=== PATIENT | male | born 1965 | race Caucasian/White ===

== ENCOUNTER 2023-02-19 09:32 | Outpatient (CLI) | payer OTHER, SELFPAY | END 2023-02-19 09:33 | disposition home or self-care (01) | PROVIDERS: PCP Family Medicine; Visit Provider Family Medicine | DX: R10.9 Unspecified abdominal pain (principal); R53.83 Other fatigue; E78.00 Pure hypercholesterolemia, unspecified; R73.03 Prediabetes; F41.8 Other specified anxiety disorders; M54.9 Dorsalgia, unspecified; Z12.5 Encounter for screening for malignant neoplasm of prostate | CPT/HCPCS: 80053; 80061; 84153; 84270; 84402; 84403; 84443 ==

== ENCOUNTER 2023-03-14 09:15 | Day surgery (SDC) | payer OTHER, SELFPAY ==
[2023-03-14] VITALS (11 sets, daily range): BP systolic 110–128; BP diastolic 74–82; PULSE 54–68; RESP 11–146; TEMP 36.4–37; O2SAT 93–100; BMI 39.4
[2023-03-14] MEDS: LACTATED RINGERS 1000 ML 1,000 ML 100 ML IV (10:10)
--- NOTE | 2023-03-14 11:45 | W.ANESCHARGE ---
Anesthesia Charges Start Date/Time Anesthesia Start Date: 03/14/23 Anesthesia Start Time: 11:25 Stop Date/Time Anesthesia Stop Date: 03/14/23 Anesthesia Stop Time: 12:39
[2023-03-14] MEDS: CEFAZOLIN 2 GM INJ IVP (11:59)
[2023-03-14] MEDS: BUPIVACAINE 0.25% 30 ML INJECTION (12:18)
--- NOTE | 2023-03-14 12:25 | PM.GSPRC ---
Operative Note Pre-op diagnosis: Incarcerated umbilical hernia Post-op diagnosis: Same Type of Procedure: Open 2 cm umbilical hernia repair with mesh Indications: The patient is a 58-year-old male who presents to clinic with a history of an umbilical hernia. This has become increasingly symptomatic for him and he desires it to be repaired. Procedure Description: After discussing the risks and benefits of the procedure, the patient signed informed consent.? The operative site was marked and the patient was brought to the operating room and placed on the operating table in supine position.? Care was taken to pad the patient's pressure points.?? The patient was then intubated by anesthesia.?? The operative site was then prepped and draped in the usual sterile fashion.? A time-out was then performed. Local anesthetic was injected into the fascia, skin and subcutaneous tissues. A curvilinear incision was made at the umbilicus. Dissection was carried down into the subcutaneous tissue using cautery. The hernia sac was encountered and care was taken to not enter it. Dissection was taken down to the fascia, and the umbilical stalk was carefully dissected off of the hernia sac. Once the hernia sac was dissected out circumferentially, it was able to be reduced. The fascial edges were then cleared circumferentially. The hernia was 2 cm in size and so the decision was made to use a piece of mesh. A preperitoneal pocket was created using a combination of blunt dissection and cautery. Hemostasis appeared adequate. Once the posterior fascia was clear, a piece of medium Ventralex ST hernia mesh was placed in the preperitoneal space with care to ensure that it laid flat. This was secured into place using 2 0 PDS interrupted sutures. The tails were then trimmed and the fascial opening was closed with 0 Nurolon sutures in a vest over pants fashion. The umbilicus was reapproximated to the fascia. The skin was then closed with running absorbable suture. A sterile dressing was then applied. ? The patient was then woken and transported to the recovery area in stable condition. ? The patient tolerated the procedure well. Findings: 2 cm fat containing umbilical hernia. Anesthesia: GETA Surgeon: Belle Gloria MD Estimated blood loss (mL): 5 Condition: stable Disposition: PACU
--- NOTE | 2023-03-14 12:38 | W.ANESCHARGE ---
Anesthesia Charges Start Date/Time Anesthesia Start Date: 03/14/23 Anesthesia Start Time: 11:25 Stop Date/Time Anesthesia Stop Date: 03/14/23 Anesthesia Stop Time: 12:39
[2023-03-14] MEDS: HYDROmorphone 2 MG TABLET PO (14:11)
== END 2023-03-14 14:21 | disposition home or self-care (01) ==
PROVIDERS: PCP Family Medicine; Visit Provider Surgery
PROC: (CPT 49592; principal; 2023-03-14 10:45)
DX: K42.0 Umbilical hernia with obstruction, without gangrene (principal)
CPT/HCPCS: 49592; 830; A9270; C1781; J0330; J0665; J0690; J1100; J1885; J2405; J2704; J3010; J3490; J7120

== ENCOUNTER 2023-11-12 14:03 | Outpatient (REF) | payer OTHER, SELFPAY ==
--- OUTSIDE RECORDS SUMMARY | 2023-11-12 14:06 | XMS_ITS | Encounter Summary ---
Author Name Unknown Organization [facility] Address [address] [place] [address] Care Team Providers Care Table Games Manager Name Role Phone Servando Mcbride MD Primary Care Provider + [phone] Whit Russell Primary Care Provi karen Whit Russell Unavailable +[phone] Encounter Details Date Type Department Care Team (Late st Contact Info) Description 09/27/2013 MyC Medical Advice [facility] [address] [place] [address] [place] [phone] DalephillipsTim Social History Tobacco Use Types Packs/Day Years Used Date Smoking Tobacco: Never Smokeless Tobacco: Never Alcohol Use Standard Drinks/Week Comments Yes 0.8 (1 standard drink = 0.6 oz p ure alcohol) social Sex and Gender Information Value Date Recorded Sex Assigned at Not on file Gender Identity Not on file Sexual Orientation Not on file documented as of this encounter Plan of Treatment Not on file documented as of this encounter Visit Diagnoses Not on filedocumented in this encounter Care Teams Table Games Manager Relationship Specialty Start Date End Date Servando Mcbride MD XXX RETIRED XXX [address] [phone] PCP - General 12/05/07 02/24/14 Whit Russell PA XXX RETIRED XXX [address] [facility] 100 [place] [address] PCP - General Family Practice 02/25/14 Whit Russell PA [address] [facility] 100 [place] [address] Assigned PCP 09/10/16 07/02/20 documented as of this encounter
--- OUTSIDE RECORDS SUMMARY | 2023-11-12 14:06 | XMS_ITS | Encounter Summary ---
Author Name Unknown Organization [facility] Address [facility] [place] [address] Care Team Providers Care Traction Power Engineer Name Role Phone Whit Russell Primary Care Provi karen Whit Russell Unavailable [phone] Reason for Visit * Reason Onset Date Comments Stress 11/02/2016 Encounter Details Date Type Department Care Team (Late st Contact Info) Description 11/02/2016 MyC Medical Advice [facility] [address] [place] [address] [address] [place] [address] Whit Russell PA [address] [address] Stress Social History Tobacco Use Types Packs/Day Years Used Date Smoking Tobacco: Never Smokeless Tobacco: Never Alcohol Use Standard Drinks/Week Comments Yes 7 (1 standard drink = 0.6 oz pur e alcohol) social Sex and Gender Information Value Date Recorded Sex Assigned at Not on file Gender Identity Not on file Sexual Orientation Not on file documented as of this encounter Miscellaneous Notes * Telephone Encounter - Azul Nails MA - 11/02/2016 1:31 PM CDTFrom: Edmundo Mojica To: Whit Russell PA Sent: 11/02/2016 12:46 PM CDT Subject: Stress Dr. Russell, I hope all is well. We spoke about 5 weeks ago when I was in for my fall on my face about my stresslevel. You had indicated that you thought maybe that we could reduce or eliminate my stress medication. I told you during the conversation that I was being asked to retire from work after 30 years of service. You suggested that I stay on the medication for the time being. I am requesting a visit to discuss this. As my timeline for forced fdc approaches I have been experiencing a tremendous amount of additional stress. I am not sure I can handle much more stress. I would like to discuss what options are available. In addition I wanted to discuss with you weather or not you thought taking a medical leave of absence was an approach that might help with my stress. Again, I am unsure how to proceed. I have never experienced anything in my life like this. Sorryfor the rant. Please advise on next steps. Servando documented in this encounter Plan of Treatment Not on file documented as of this encounter Visit Diagnoses Not on filedocumented in this encounter Additional Health Concerns Assessment Noted Time PHQ-9 Depression Total Score: 3 02/23/20 16 7:16 AM CDT documented as of this encounter Care Teams Traction Power Engineer Relationship Specialty Start Date End Date Whit Russell PA PCP - General Family Practice 02/25/14 Whit Russell PA [address] [place] [address] [place] [address] Assigned PCP 09/10/16 07/02/20 documented as of this encounter
--- OUTSIDE RECORDS SUMMARY | 2023-11-12 14:06 | XMS_ITS | Encounter Summary ---
Author Name Unknown Organization [facility] Address [address] [place] [address] Care Team Providers Care Terminal Makeup Operator Name Role Phone Whit Russell Primary Care Provi karen Whit Russell Unavailable + [phone] Encounter Details Date Type Department Care Team (Late st Contact Info) Description 09/01/2014 MyC Medical Advice [facility] [address] [place] [phone] Tim Funez Social History Tobacco Use Types Packs/Day Years [...] on filedocumented in this encounter Care Teams Terminal Makeup Operator Relationship Specialty Start Date End Date Whit Russell PA PCP - General Family Practice 02/25/14 Whit Russell PA [address] [address] Assigned PCP 09/10/16 07/02/20 documented as of this encounter
--- OUTSIDE RECORDS SUMMARY | 2023-11-12 14:06 | XMS_ITS | Encounter Summary ---
Author Name Unknown Organization [facility] Address [address] [place] [address] Care Team Providers Care Production Miner Name Role Phone Servando Mcbride MD Primary Care Provider + [phone] Whit Russell Primary Care Provi karen Whit Russell Unavailable +[phone] Encounter Details Date Type Department Care Team (Late st Contact Info) Description 11/14/2012 MyC Medical Advice [facility] [address] [place] [address] [place] [address] DalegarrisonTim Social History Tobacco Use Types Packs/Day Years [...] on filedocumented in this encounter Care Teams Production Miner Relationship Specialty Start Date End Date Servando Mcbride MD XXX RETIRED XXX [address] [phone] PCP - General 12/05/07 02/24/14 Whit Russell PA XXX RETIRED XXX [address] [facility] 100 [place] [address] PCP - General Family Practice 02/25/14 Whit Russell PA [address] [facility] 100 [place] [address] Assigned PCP 09/10/16 07/02/20 documented as of this encounter
--- OUTSIDE RECORDS SUMMARY | 2023-11-12 14:06 | XMS_ITS | Encounter Summary ---
Author Name Unknown Organization [facility] Address [address] [place] [address] Care Team Providers Care Bull Fiddle Player Name Role Phone Whit Russell Primary Care Provi karen Whit Russell Unavailable [phone] Encounter Details Date Type Department Care Team (Late st Contact Info) Description 06/28/2017 MyC Medical Advice [facility] [address] [place] [address] Whit Russell PA [address] [facility] 100 [place] [address] Social History Tobacco Use Types Packs/Day Years Used Date Smoking Tobacco: Never Smokeless Tobacco: Former Comments:In College Alcohol Use Standard Drinks/Week Comments Yes 7 (1 standard drink = 0.6 oz pur e alcohol) social Sex and Gender Information Value Date Recorded Sex Assigned at Not on file Gender Identity Not on file Sexual Orientation Not on file documented as of this encounter Miscellaneous Notes * Telephone Encounter - Yudelka Archuleta CMA - 06/29/2017 8:41 AM CSTFrom: Edmundo Mojica To: Whit Russell PA Sent: 06/28/2017 7:24 PM SUPERINTENDENT CIRCUS Subject: Updates about my health Whit, My time with the EMT was interesting. He did not feel that it was hearing lose due to an obstruction or fluid. He believes that it is nerve damage. Had to do a hearing test. Right side normal. Left side was 30 to 45 decibels below the average. Prescribe Prednazone ( not sure about the spelling ). He hopes that the hearing will come back with a decrease of swelling in the ear. Follow up in 12 days. If no improvement will do an MRI and address from there. The pressure on the ear should decrease with the medication. The nerve should settle down with the sessesation of pressure. Will keep you up to date. Also my colonoscopy is scheduled for Aug 08, 2017. Thanks again for all of you help, today and previously. Servando RINTENDENT CIRCUS documented in this encounter Plan of Treatment Not on file documented as of this encounter Visit Diagnoses Not on filedocumented in this encounter Additional Health Concerns Assessment Noted Time PHQ-9 Depression Total Score: 9 06/28/20 17 1:21 PM SUPERINTENDENT CIRCUS documented as of this encounter Care Teams Bull Fiddle Player Relationship Specialty Start Date End Date Whit Russell PA PCP - General Family Practice 02/25/14 Whit Russell PA [address] [place] [address] [place] [address] Assigned PCP 09/10/16 07/02/20 documented as of this encounter
--- OUTSIDE RECORDS SUMMARY | 2023-11-12 14:06 | XMS_ITS | Encounter Summary ---
Author Name Unknown Organization [facility] Address [address] [facility] [place] [address] Care Team Providers Care Shrimp Packer Name Role Phone Whit Russell Primary Care Provi karen Whit Russell Unavailable [phone] Encounter Details Date Type Department Care Team (Late st Contact Info) Description 12/09/2016 MyC Medical Advice [facility] [address] [place] [address] Whit Russell PA [address] [facility] 100 [place], [place] [address] Social History Tobacco Use Types Packs/Day Years [...] encounter Miscellaneous Notes * Telephone Encounter - Leidy Cobb - 12/10/2016 9:47 AM CDT I called [facility], talked to Nancy. Patient has appt today, 12/10/16 @ 10:45am with [facility]. I faxed the referral & office notes to [phone] The referral was faxed on 12/07/16 ( I was not in the office that day ). No fax # on the cover letter. FYI * Telephone Encounter - Regine Alexander CMA - 12/10/2016 8:13 AM CDTFrom: Edmundo Mjoica To: Whit Russell PA Sent: 12/09/2016 7:58 PM CDT Subject: Confusion and direction needed Good evening. I contacted my insurance as requested and then made an appointment with Dr. Seaman.This was on Saturday morning. Late Saturday afternoon I received a call from a different endocrinology clinic stating that they had my paperwork and a referral from your office. I'm confused. Do I go to see Dr. Seaman as I have an appointment and you all will send him my referral and paperwork or am I going to endocriology clinch you all sent my paperwork to. Please advise. I am scheduled to meet with Dr. Seaman at 10:15 Saturday, December 10, 2016. documented in this encounter Plan of Treatment Not on file documented as of this encounter Visit Diagnoses Not on filedocumented in this encounter Additional Health Concerns Assessment Noted Time PHQ-9 Depression Total Score: 19 017 7:10 AM CDT documented as of this encounter Care Teams Shrimp Packer Relationship Specialty Start Date End Date Whit Russell PA PCP - General Family Practice 02/25/14 Whit Russell PA [address] [place] [address] [place] [address] Assigned PCP 09/10/16 07/02/20 documented as of this encounter
--- OUTSIDE RECORDS SUMMARY | 2023-11-12 14:06 | XMS_ITS | Encounter Summary ---
Author Name Unknown Organization [facility] Address [address] [place] [address] Care Team Providers Care Monorail Hooker Name Role Phone Servando Mcbride MD Primary Care Provider + [phone] Whit Russell Primary Care Provi karen Whit Russell Unavailable [phone] Encounter Details Date Type Department Care Team (Late st Contact Info) Description 12/18/2007 MyC Medical Advice [facility] [address] [place] [address] [place] [phone] [facility] Social History Tobacco Use Types Packs/Day Years Used Date Smoking Tobacco: Never Alcohol Use Standard Drinks/Week Comments Yes 0.8 (1 standard drink = 0.6 oz p ure alcohol) Sex and Gender Information Value Date Recorded Sex Assigned at Not on file Gender Identity Not on file Sexual Orientation Not on file documented as of this encounter Plan of Treatment Not on file documented as of this encounter Visit Diagnoses Not on filedocumented in this encounter Care Teams Monorail Hooker Relationship Specialty Start Date End Date Servando Mcbride MD XXX RETIRED XXX [address] [phone] PCP - General 12/05/07 02/24/14 Whit Russell PA XXX RETIRED XXX [address] [facility] 100 [place] [address] PCP - General Family Practice 02/25/14 Whit Russell PA [address] [facility] 100 [place], [place] [address] Assigned PCP 09/10/16 07/02/20 documented as of this encounter
--- OUTSIDE RECORDS SUMMARY | 2023-11-12 14:06 | XMS_ITS | Encounter Summary ---
Author Name Unknown Organization [facility] Address [facility] [place] [address] [place] [address] Care Team Providers Care Edge Sawyer Name Role Phone Rubin De Leon DO Primary Care Provider [phone] Reason for Visit * Reason Comments Pre-op Report (SCAN) [facility] Operative Report (SCAN) [facility] Encounter Details Date Type Department Care Team ([facility] st Contact Info) Description 07/24/2006 [facility] BUSINESS OFFICE [address] [place] [phone] Scanned, Documents Pre-op Report (SCAN) ([facility]); Operative Report (SCAN) ([facility]) Social History Tobacco Use Types Packs/Day Years Used Date Smoking Tobacco: Never Alcohol Use Standard Drinks/Week Comments Yes 0 (1 standard drink = 0.6 oz pur e alcohol) 2 beers a week Sex and Gender Information Value Date Recorded Sex Assigned at Not on file Gender Identity Not on file Sexual Orientation Not on file documented as of this encounter Progress Notes * Noah, Rut - 08/07/2006 3:10 PM RESTAURANT BUSSER AURANT BUSSER * Noah, Documents - 08/06/2006 10:58 AM RESTAURANT BUSSER AURANT BUSSER documented in this encounter Plan of Treatment Not on file documented as of this encounter Visit Diagnoses Not on filedocumented in this encounter Care Teams Edge Sawyer Relationship Specialty Start Date End Date Rubin De Leon DO [address] [place] [address] PCP - General 11/15/05 12/05/14 documented as of this encounter
--- OUTSIDE RECORDS SUMMARY | 2023-11-12 14:06 | XMS_ITS | Clinical Summary ---
Author Name Unknown Organization [facility] Address [facility] [place], [place] [address] [place] [address] Care Team Providers Care Relay Repairer Name Role Phone Unavailable Primary Care Provider Unavailabl e Allergies Active Allergy Reactions Criticality Noted Date Comments Morphine And Related Hives 04/03/2004 Medications Medication Sig Dispensed Refills Start Date End Date Status PRILOSEC OTC 20 MG OR TBEC 1 TABLET DAILY 14 0 11/19/2005 Active TRAMADOL HCL 50 MG OR TABS 1 TAB Q 6 HRS PRN PRN 30 0 07/27/2006 Active Active Problems Problem Noted Date Diagnosed Date Esophageal reflux 06/27/2005 Immunizations Name Administration Dates Next Due Tdap (Adacel) 12/12/2005 Family History Medical History Relation Comments COPD Father Cancer Maternal Grandfather esophageal cancer Cancer Maternal Grandmother pancreatic cancer Heart Mother CHF copd Mother Alcohol/Drug Paternal Grandmother liver disea se Relation Status Comments Father Alive Maternal Grandfather Maternal Grandmother Mother Paternal Grandfather Paternal Grandmother Social History Tobacco Use Types Packs/Day Years Used Date Smoking Tobacco: Never Alcohol Use Standard Drinks/Week Comments Yes 0 (1 standard drink = 0.6 oz pur e alcohol) 2 beers a week Sex and Gender Information Value Date Recorded Sex Assigned at Not on file Gender Identity Not on file Sexual Orientation Not on file Last Filed Vital Signs Vital Sign Reading Time Taken Comments Blood Pressure 120/72 07/19/2006 2:50 PM ADVERTISING OPERATIONS COORDINATOR Pulse 70 07/19/2006 2:50 PM ADVERTISING OPERATIONS COORDINATOR Temperature 36.8 ??C (98.2 ??F) 07/19/2006 2:50 PM CS T Respiratory Rate 18 07/19/2006 2:50 PM ADVERTISING OPERATIONS COORDINATOR Oxygen Saturation - - Inhaled Oxygen Concentration - - Weight 94.3 kg (208 lb) 07/19/2006 2:50 PM ADVERTISING OPERATIONS COORDINATOR Height 167.6 cm (5' 6) 07/19/2006 2:50 PM ADVERTISING OPERATIONS COORDINATOR Body Mass Index 33.57 07/19/2006 2:50 PM ADVERTISING OPERATIONS COORDINATOR Plan of Treatment Health Maintenance Due Date Last Done Comments Colorectal Cancer Screening Colonoscopy (10 Years) 1967 Annual Physical 1970 Hepatitis C 1985 DTaP, Tdap and Td Vaccines ( 2 - Td or Tdap) 12/13/2015 12/12/2005 Zoster Vaccines (1 of 2) 2017 COVID-19 Vaccine (1 - 2022-2 4 season) 2023 Meningococcal Vaccine Aged Out No thai jennifer eligible based on patient's age to complete this topic Pneumococcal Vaccine: Pediat rics (0 to 5 Years) and At-Risk Patients (6 to 64 Years) Aged Out No longer eligi ble based on patient's age to complete this topic RSV Immunizations Under 20 Months Aged Out No longer eligible based on patient's age to complete this topic
--- OUTSIDE RECORDS SUMMARY | 2023-11-12 14:06 | XMS_ITS | Encounter Summary ---
Author Name Unknown Organization [facility] Address [address] [place] [address] Care Team Providers Care Identification And Records Commander Name Role Phone Servando Mcbride MD Primary Care Provider + [phone] Whit Russell Primary Care Provi karen Whit Russell Unavailable [phone] Encounter Details Date Type Department Care Team (Late st Contact Info) Description 05/11/2011 MyC Medical Advice [facility] [address] [place] [address] [place] [address] [facility] Social History Tobacco Use Types Packs/Day Years [...] on filedocumented in this encounter Care Teams Identification And Records Commander Relationship Specialty Start Date End Date Servando Mcbride MD XXX RETIRED XXX [address] [phone] PCP - General 12/05/07 02/24/14 Whit Russell PA XXX RETIRED XXX [address] [facility] 100 [place] [address] PCP - General Family Practice 02/25/14 Whit Russell PA [address] [facility] [address] [facility] 100 [place] [address] Assigned PCP 09/10/16 07/02/20 documented as of this encounter
--- OUTSIDE RECORDS SUMMARY | 2023-11-12 14:06 | XMS_ITS | Encounter Summary ---
Author Name Unknown Organization [place] Address [address] [place] [address] Care Team Providers Care Labor Relations Manager Name Role Phone Servando Mcbride MD Primary Care Provider + [phone] Whit Russell Primary Care Provi karen Whit Russell Unavailable +[phone] Encounter Details Date Type Department Care Team (Late st Contact Info) Description 05/07/2011 MyC Medical Advice [facility] [address] [place] [address] [place] [address] [facility] Social History Tobacco Use Types Packs/Day Years [...] on filedocumented in this encounter Care Teams Labor Relations Manager Relationship Specialty Start Date End Date Servando Mcbride MD XXX RETIRED XXX [address] [phone] PCP - General 12/05/07 02/24/14 Whit Russell PA XXX RETIRED XXX [address] [facility] 100 [place] [address] PCP - General Family Practice 02/25/14 Whit Russell PA [address] [facility] [address] [place] [address] Assigned PCP 09/10/16 07/02/20 documented as of this encounter
--- OUTSIDE RECORDS SUMMARY | 2023-11-12 14:06 | XMS_ITS | Clinical Summary ---
Author Name Unknown Organization [place] Address [address] [place] [address] Care Team Providers Care Hardware Developer Name Role Phone Whit Russell Primary Care Provi karen Allergies No known active allergies Medications Medication Sig Dispensed Refills Start Date End Date Status Multiple Vitamin (ONE-A-DAY MENS) TABS Take 1 tablet by mouth daily. Active sertraline (ZOLOFT) 50 MG tabletIndications:A djustment disorder with mixed anxiety and depressed mood Cut in 1/2 for one week then one tab daily 90 tablet 11/06/2016 Active Additional Information Patient not taking.Reported on 03/16/2018 TraZODone & Diet Manage Prod (TRAZAMINE) 50 MG MISC Active traZODone (DESYREL) 50 MG tabletIndications:P rimary insomnia Take 1 tablet (50 mg) by mouth nightly as needed for sleep 90 tablet 06/28/2017 Active sertraline (ZOLOFT) 100 MG tabletIndications:A djustment disorder with mixed anxiety and depressed mood Take 1 tablet (100 mg) by mouth daily 90 tablet 06/28/2017 Active Active Problems Problem Noted Date Diagnosed Date Diverticulosis of large inte griffin without hemorrhage - throughout entire colon 11/15/2017 Thyroid nodule - Dr. Seaman managed 02/17/2017 ACP (advance care planning) 12/05/2015 Overview: Advance Care Planning 12/05/2015: ACP Review of Chart / Resources Provided: Reviewed chart for advance care plan. Edmundo Mojica has no plan or code status on file. Discussed available resources and provided with information. Confirmed code status reflects current choices pending further ACP discussions. Confirmed/documented legally designated decision makers. Added by Regine Alexander Mixed hyperlipidemia 12/05/2015 Adjustment disorder with mixed anxiety and depre ssed mood 12/05/2015 Health Retirement 05/16/2012 Overview: State Tier Level: Tier 1 Status: n/a Lang Path Therapist: See Letters for [facility] Care Plan Abnormal glucose 10/01/2008 Overview: Problem list name updated by automated process. Provider to review MUSCLE FASCICULATIONS 12/05/2007 Resolved Problems Problem Noted Date Diagnosed Date Resolved Date Living will, counseling/discussion 05/16/2012 06/06/2015 Overview: Patient states has Advance Directive and will bring in a copy to clinic. 05/16/2012 Hyperlipidemia 10/01/2008 12/05/2015 Overview: Problem list name updated by automated process. Provider to review Immunizations Name Administration Dates Next Due HEPA 08/29/2009,12/05/2007 HepB 08/29/2009,12/05/2007 Influenza (H1N1) 08/29/2009 Influenza (IIV3) PF 05/16/2012,09/01/2010 Nasal Influenza Vaccine 2-49 (FluMist) 5 Pneumococcal 23 valent 04/05/2015 TDAP Vaccine (Adacel) 03/16/2018,12/05/2007 Family History Medical History Relation Comments Depression Father Suicide Father Depression Mother Suicide Mother Asthma No family hx of C.A.D. No family hx of Cancer - colorectal No family hx of Diabetes No family hx of Hypertension No family hx of Prostate Cancer No family hx of Relation Status Comments Brother Alive Father (Age 56) Lung cnacer Mother (Age 52) COPD Sister Alive Son 1 Alive Son 2 Alive Son 3 Alive Social History Tobacco Use Types Packs/Day Years Used Date Smoking Tobacco: Never Smokeless Tobacco: Former Comments:In College Alcohol Use Standard Drinks/Week Comments Yes 7 (1 standard drink = 0.6 oz pur e alcohol) social Adolescent Education Answer Date Record ed Getting School Help Needed Not on file 05/14 Sex and Gender Information Value Date Recorded Sex Assigned at Not on file Gender Identity Not on file Sexual Orientation Not on file Last Filed Vital Signs Vital Sign Reading Time Taken Comments Blood Pressure 120/72 03/16/2018 3:17 PM CDT Pulse 100 03/16/2018 3:17 PM CDT Temperature 36.9 ??C (98.5 ??F) 03/16/2018 3 :17 PM CDT Respiratory Rate 20 11/06/2016 1:47 PM CDT Oxygen Saturation 98% 03/16/2018 3:1 7 PM CDT Inhaled Oxygen Concentration - - Weight 112.8 kg (248 lb 9.6 oz) 017 12:27 PM SPRAY DRY OPERATOR with shoes Height 170.2 cm (5' 7) 11/06/2016 1:47 PM CDT Body Mass Index 38.94 11/06/2016 1:47 PM CDT Plan of Treatment Not on file Procedures Procedure Name Priority Date/Time Associated Diagnosis Comments COLONOSCOPY - HIM SCAN Routine 11/12/2017 LIPID PROFILE Routine 12/05/2015 11:33 AM CDT Mixed hyperlipidemia from Last 3 Months or Most Recently Relevant to Health Maintenance Results * Colonoscopy - HIM Scan (11/12/2017) Provider Outside PROCEDURES * (ABNORMAL) Lipid Profile ([facility]) (12/05/2015 11:33 AM CDT) Cholesterol 202(H) 125 - 200 mg/dL [facility] HDL Cholesterol 39(L) > OR = 40 mg/dL [facility] Triglycerides 92 <150 mg/dL [facility] LDL Cholesterol Calculated 145(H) <130 mg/dL (calc) [facility] Comment: Desirable range <100 mg/dL for patients with CHD or diabetes and <70 mg/dL for diabetic patients with known heart disease. Cholesterol/HDL Ratio 5.2(H) < OR = 5.0 (calc) [facility] Non HDL Cholesterol 163(H) mg/dL (calc) [facility] Comment: Target for non-HDL cholesterol is 30 mg/dL higher than LDL cholesterol target. Blood specimen (specimen) 12/05/2015 11:33 AM CDT 12/06/2015 3:36 AM CDT Narrative Resulting Agency Comment Performing Organization Information: ? CB ? [facility] ? [address] [place] [address] ? Carl Rodriguez M.D. Jason Black MD LAB - BLOOD O RDERABLES [employer] [facility] [address] [place] [address] from Last 3 Months or Most Recently Relevant to Health Maintenance Care Teams Hardware Developer Relationship Specialty Start Date End Date Whit Russell PA PCP - General Family Practice 02/25/14
--- OUTSIDE RECORDS SUMMARY | 2023-11-12 14:06 | XMS_ITS | Encounter Summary ---
Author Name Unknown Organization [place] Address [address] [place] [address] Care Team Providers Care Fruit And Vegetable Packer Name Role Phone Whit Russell Primary Care Provi karen Whit Russell Unavailable [phone] Reason for Visit * Reason Onset Date Comments MyChart Communication 06/27/2017 Encounter Details Date Type Department Care Team (Latest Contact Info) Description 06/27/2017 MyC Medical Advice [facility] [address] [place] [address] [place] [phone] Whit Russell PA [address] [address] MyChart Communication Social History Tobacco Use Types Packs/Day Years [...] encounter Miscellaneous Notes * Telephone Encounter - Kristy Patel CMA - 06/27/2017 11:40 AM CSTFrom: Edmundo Mojica To: Whit Russell PA Sent: 06/27/2017 11:36 AM RADIO PRODUCER Subject: Do I need an appointment? Whit Good morning, I hope you and your family had a blessed Thanksgiving. I have a question for you.! Three weeks ago I developed a chest cold and what I am guessing is a sinus infection. A week later neither had abaitted. I had to fly to [place] for work. I could not equalize my ears because of the sinus pressure. 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 I was able to clear the right side but not the left. On my return trip I was able to equalize he right but he left again would not. I have had pressure on he left side of my face, head and ear ever since. [facility] was [facility] for antibiotics. The chest cold is all but gone but the pressure a nd pain on he left side is still there. I can only hear a constant ringing accompanied with muffledsounds ( like wearing hearing protection when I shoot ). I hear and occasional gurgling sound. The ear won???t clear. I have to fly to [place] Saturday and want to know your thoughts on what to do next. The pressure, headache and hearing mitigation have been for roughly 2 weeks. Please advise Thank youServando O PRODUCER documented in this encounter Plan of Treatment Not on file documented as of this encounter Visit Diagnoses Not on filedocumented in this encounter Additional Health Concerns Assessment Noted Time PHQ-9 Depression Total Score: 19 11/07/ 017 7:10 AM CDT documented as of this encounter Care Teams Fruit And Vegetable Packer Relationship Specialty Start Date End Date Whit Russell PA PCP - General Family Practice 02/25/14 Whit Russell PA [address] [facility] [address] [place] [address] Assigned PCP 09/10/16 07/02/20 documented as of this encounter
--- OUTSIDE RECORDS SUMMARY | 2023-11-12 14:06 | XMS_ITS | Referral Summary ---
Author Name Unknown Organization [place] Address [address] [place] [address] Care Team Providers Care Bottom Saw Operator Name Role Phone Whit Russell Primary [...] anxiety and depre ssed mood 12/05/2015 Health Long Term 05/16/2012 Overview: State Tier Level: Tier 1 Status: n/a Pantomimist: See Letters for [facility] Care Plan Abnormal glucose 10/01/2008 Overview: Problem [...] 23 valent 04/05/2015 TDAP Vaccine (Adacel) 03/16/2018,12/05/2007 Social History Tobacco Use Types Packs/Day Years [...] (248 lb 9.6 oz) 017 12:27 PM CASTINGS DRAFTER with shoes Height 170.2 cm (5' 7) [...] Comment Performing Organization Information: ? CB ? [facility] ? [address] [facility] [place] [address] ? Carl Rodriguez M.D. Jason Black MD LAB - BLOOD O RDERABLES [employer] [facility] [address] [place] [address] from Last 3 Months or Most Recently Relevant to Health Maintenance Care Teams Bottom Saw Operator Relationship Specialty Start Date End Date Whit Russell PA PCP - General Family Practice 02/25/14
--- OUTSIDE RECORDS SUMMARY | 2023-11-12 14:06 | XMS_ITS | Encounter Summary ---
Author Name Unknown Organization [place] Address [address] [place] [address] Care Team Providers Care Slot Tag Inserter Name Role Phone Whit Russell Primary Care Provi karen Whit Russell Unavailable [phone] Reason for Visit * Reason Onset Date Comments MyChart Communication 09/16/2017 Encounter Details Date Type Department Care Team (Latest Contact Info) Description 09/16/2017 MyC Medical Advice [facility] [address] [place] [address] [place] [phone] Whit Russell PA [address] [address] MyChart Communication Social History Tobacco [...] Telephone Encounter - Yudelka Archuleta CMA - 09/16/2017 12:15 PM CSTFrom: Edmundo Mojica To: Whit Russell PA Sent: 09/16/2017 12:07 PM SHIP SCRAPER Subject: Updates about my health WhitAnt morning, I am writing this as my employer will no longer allow me to work half days and have someone pick meup. They are telling me that I either need to be on an OUMAR or come back to work full force. I have my appointment with the concussion clinic this coming Saturday. How do I go about getting a medical recommendation for an OUMAR because of my issues from the fall? Do I go through you, the hospital that Iwas seen at or wait to see the concussion folks this coming Saturday. I've never had and issue like this so I am not sure how to move forward. Please advise. Servando SCRAPER documented in this encounter Plan of Treatment Not on file documented as of this encounter Visit Diagnoses Not on filedocumented in this encounter Additional Health Concerns Assessment Noted Time PHQ-9 Depression Total Score: 9 06/28/20 17 1:21 PM SHIP SCRAPER documented as of this encounter Care Teams Slot Tag Inserter Relationship Specialty Start Date End Date Whit Russell PA PCP - General Family Practice 02/25/14 Whit Russell PA [address] [facility] [address] [place] [address] Assigned PCP 09/10/16 07/02/20 documented as of this encounter
--- OUTSIDE RECORDS SUMMARY | 2023-11-12 14:06 | XMS_ITS | Encounter Summary ---
Author Name Unknown Organization [facility] Address [address] [place] [id number] [place] [address] Care Team Providers Care Sales Representative Printing Paper Name Role Phone Rubin De Leon DO Primary Care Provider [phone] Reason for Visit * Reason Comments Operative Report (SCAN) [facility] Encounter Details Date Type Department Care Team ([facility] st Contact Info) Description 01/09/2006 [facility] BUSINESS OFFICE [address] [place] [phone] Scanned, Documents Operative Report (SCAN) ([facility]) Social History Tobacco Use Types Packs/Day Years Used Date Smoking Tobacco: Never Alcohol Use Standard Drinks/Week Comments Yes 0 (1 standard drink = 0.6 oz pur e alcohol) 2 beers a week Sex and Gender Information Value Date Recorded Sex Assigned at Not on file Gender Identity Not on file Sexual Orientation Not on file documented as of this encounter Progress Notes * Zscanned, Documents - 01/23/2006 3:00 PM CDT documented in this encounter Plan of Treatment Not on file documented as of this encounter Visit Diagnoses Not on filedocumented in this encounter Care Teams Sales Representative Printing Paper Relationship Specialty Start Date End Date Rubin De Leon DO [address] [place] [address] PCP - General 11/15/05 12/05/14 documented as of this encounter
--- OUTSIDE RECORDS SUMMARY | 2023-11-12 14:07 | XMS_ITS | Clinical Summary ---
Author Name Unknown Organization [facility] Address [address] [place] [address] Care Team Providers Care Dope Sprayer Name Role Phone Unavailable Primary Care Provider Unavailabl e Source Comments You are receiving this document as you are listed as the primary care provider,follow-up provider, or the patient has been referred to you for consultation.This is in compliance with the Medicare and[facility] Hospital[facility] EHR Incentive Program,which states Providers who transition their patient to another setting of careor provider of care or refers their patient to another provider of care shouldprovide summary care record for each transition of care or referral. [facility] Allergies Active Allergy Reactions Criticality Noted Date Comments Codeine Other, see comments 10/25/2017 Face swelling and nausea Medications Medication Sig Dispensed Refills Start Date End Date Status gabapentin (NEURONTIN) 100 MG capsule Take 1-2 Caps by mouth two times a day. 120 Cap 3 10/25/2017 Active amitriptyline (ELAVIL) 10 MG tablet Take 1 Tab by mouth every evening for 30 days. 30 Tab 2 11/29/2017 Active amitriptyline (ELAVIL) 10 MG tablet Take 1 Tab by mouth daily at bedtime. 3 tabs at bedtime x 1 week then 5 tabs at bedtime 150 Tab 3 12/09/2017 Active Active Problems Problem Noted Date Diagnosed Date Chronic tension-type headache, not intractable 0 12/09/2017 Post-concussion headache 12/09/2017 Social History Tobacco Use Types Packs/Day Years Used Date Smoking Tobacco: Never Assessed Sex and Gender Information Value Date Recorded Sex Assigned at Not on file Gender Identity Not on file Sexual Orientation Not on file Last Filed Vital Signs Vital Sign Reading Time Taken Comments Blood Pressure 127/85 12/09/2017 8:49 AM CDT Pulse 84 12/09/2017 8:49 AM CDT Temperature 36.4 ??C (97.5 ??F) 08/31/2017 7:15 PM CS T Respiratory Rate 14 08/31/2017 9:37 PM MARKET NEWS REPORTER Oxygen Saturation 91% 08/31/2017 10:45 PM MARKET NEWS REPORTER Inhaled Oxygen Concentration - - Weight 113.4 kg (250 lb) 12/09/2017 8:49 AM CDT Height 167.6 cm (5' 6) 12/09/2017 8:49 AM CDT Body Mass Index 40.35 12/09/2017 8:49 AM CDT Plan of Treatment Health Maintenance Due Date Last Done Comments Colon Cancer Screening Plan Due 1965 Hep C Screening (Preventive Services) 1965 PSA Screening Discussion 1967 HIV Screening (Preventive Services) 1983 Adult Preventive Visit 1985 HepB (1) 1986 Cholesterol 2002 Zoster/Shingles (1 of 2) 2017 COVID-19 Vaccine ( season) 2023 Influenza (#1) 2023 05/28/2020, 07/30, 03/06/2016, Additional history exists DTaP/Tdap/Td (4 - Tdap) 03/16/2028 03/16/20 20, 12/05/2007, 12/12/2005 HepA Aged Out 08/29/2009, 12/05/2007 No lo nger eligible based on patient's age to complete this topic Pneumococcal Aged Out 04/05/2015 No longer eligi ble based on patient's age to complete this topic Hib Aged Out No longer eligi ble based on patient's age to complete this topic IPV (Polio) Aged Out No longer eligi ble based on patient's age to complete this topic MCV4 Aged Out No longer eligi ble based on patient's age to complete this topic Edmundo Mojica Personal/Famil y Self 1965 (Mack) [address] [place] [address]
--- OUTSIDE RECORDS SUMMARY | 2023-11-12 14:07 | XMS_ITS | Clinical Summary ---
Author Name Unknown Organization [facility] Address [place], [place] [address] Care Team Providers Care Chain Offbearer Name Role Phone Servando Mcbride Primary Care Provider Unavailkaylen e Allergies Active Allergy Reactions Criticality Noted Date Comments Codeine Throat Swelling/Closing High 12/20/2011 Medications Medication Sig Dispensed Refills Start Date End Date Status MULTIVITS-MINERALS/ FA/LYCOPENE (ONE-A-DAY MEN'S MULTIVITAMIN ORAL) Take 1 Tab by mouth. Active triamcinolone (ARISTOCORT; KENALOG) 0.1 % cream Apply topically to affected area(s) 2 times daily. Active HYDROcodone-acetami nophen, 5-325 mg, (NORCO) per tablet Take 1-2 tablets by mouth every 4 hours if needed for Pain. Max acetaminophen dose: 4000mg in 24 hrs. 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 Other affections of shoulder region, not elsewhere classified 09/04/2011 Pain in joint, shoulder region 09/04/2011 Social History Tobacco Use Types Packs/Day Years Used Date Smoking Tobacco: Never Alcohol Use Standard Drinks/Week Comments Yes 0 (1 standard drink = 0.6 oz pur e alcohol) Sex and Gender Information Value Date Recorded Sex Assigned at Not on file Gender Identity Not on file Sexual Orientation Not on file Obstetrics History Last Filed Vital Signs Vital Sign Reading Time Taken Comments Blood Pressure 103/66 05/28/2012 12:25 PM CDT Pulse 58 05/28/2012 12:25 PM CDT Temperature 36 ??C (96.8 ??F) 05/28/2012 10: 30 AM CDT Respiratory Rate 16 05/28/2012 12:2 5 PM CDT Oxygen Saturation 97% 05/28/2012 12: 25 PM CDT Inhaled Oxygen Concentration - - Weight 95.2 kg (209 lb 14.1 oz) 05/28/2012 6:34 AM CDT Height 168.9 cm (5' 6.5) 05/28/2012 6:34 AM CDT Body Mass Index 33.37 05/28/2012 6:34 AM CDT Plan of Treatment Health Maintenance Due Date Last Done Comments Tdap 1978 Depression screening for age 12+ 1979 HIV for age 15-65 1982 BMI (ht and wt on same day) for age 18+ 1985 Hepatitis C screening for ag e 18-79 1985 Tetanus booster 1987 Colonoscopy through age 75 01/02/2012 Lipids for age 45-75 01/02/2012 Zoster (shingles) series for age 50+ (1 of 2) 2017 COVID-19 vaccine series ( - 2022-24 season) 2023 Influenza for age 50-64 03/29/2024 Pneumococcal series for age 6-64 Aged Out No longer eligible based on patient's age to complete this topic Advance Directives * Full Code (Latest Code Status on File) Date Activated Date Inactivated Comments 05/28/2012 10:26 AM 05/28/2012 3:08 PM Care Teams Chain Offbearer Relationship Specialty Start Date End Date Servando Mcbride PCP - General Family Practice 08/23/11
--- OUTSIDE RECORDS SUMMARY | 2023-11-12 14:07 | XMS_ITS | Encounter Summary ---
Author Name Unknown Organization [facility] Address [address] [place] [address] Care Team Providers Care Analytical Manager Name Role Phone Unavailable Primary Care Provider Unavailabl e Encounter Details Date Type Department Care Team (Late st Contact Info) Description 08/31/2017 Correspondence [facility] Radiology [address] [place] [address] Radiology, Provider MRI SAFETY SHEET AND COMPATIBILITY FORM Social History Tobacco Use Types Packs/Day Years [...]
[2023-11-12 15:48] LABS: PSA Diagnostic* 5.96 ng/mL (0.10-4.00)
== END 2023-11-12 14:04 | disposition home or self-care (01) ==
LOC: NPINS 14:03
PROVIDERS: PCP Family Medicine; Visit Provider Student in an Organized Health Care Education/Training Program
DX: R97.20 Elevated prostate specific antigen [PSA] (principal)
CPT/HCPCS: 84153

== ENCOUNTER 2024-05-25 16:05 | Outpatient (CLI) | payer BC, SELFPAY | END 2024-05-25 16:06 | disposition home or self-care (01) | LOC: LKVREF 16:06 | PROVIDERS: PCP Family Medicine; Visit Provider Family Medicine | DX: Z01.818 Encounter for other preprocedural examination (principal); R73.03 Prediabetes; R97.20 Elevated prostate specific antigen [PSA]; N40.0 Benign prostatic hyperplasia without lower urinary tract symptoms | CPT/HCPCS: 80048 ==

== ENCOUNTER 2025-03-16 09:06 | Outpatient (CLI) | payer BC, SELFPAY | END 2025-03-16 09:07 | disposition home or self-care (01) | LOC: NFLDREF 03-21 04:25 | PROVIDERS: PCP Family Medicine; Referring Provider Family Medicine; Visit Provider Family Medicine | DX: Z01.818 Encounter for other preprocedural examination (principal); E78.00 Pure hypercholesterolemia, unspecified; R73.03 Prediabetes | CPT/HCPCS: 80053; 80061 ==